=== PATIENT | female | born 1995 | race Caucasian/White ===

== ENCOUNTER → 2023-01-13 10:14 | Outpatient (BNVA) | payer MEDICAID, SELFPAY | PROVIDERS: Family Provider Registered Nurse; Referring Provider Family Medicine; Visit Provider Student in an Organized Health Care Education/Training Program | DX: M25.561 Pain in right knee (principal); S83.8X1A Sprain of other specified parts of right knee, initial encounter; X58.XXXA Exposure to other specified factors, initial encounter | CPT/HCPCS: 73560; 73565 ==

== ENCOUNTER → 2024-09-09 11:28 | Outpatient (BNVA) | payer OTHER, SELFPAY | PROVIDERS: Family Provider Registered Nurse; Visit Provider Nurse Practitioner Women's Health | DX: Z01.419 Encounter for gynecological examination (general) (routine) without abnormal findings (principal); E28.2 Polycystic ovarian syndrome; N92.6 Irregular menstruation, unspecified; N91.2 Amenorrhea, unspecified | CPT/HCPCS: 80053; 82306; 82670; 83001; 83002; 83036; 83520; 83525; 84146; 84402; 84403; 84443; 84702; 85025 ==

== ENCOUNTER → 2024-09-11 12:33 | Outpatient (BNVA) | payer OTHER, SELFPAY | PROVIDERS: Family Provider Registered Nurse; Visit Provider Nurse Practitioner Women's Health | DX: N92.6 Irregular menstruation, unspecified (principal); N83.292 Other ovarian cyst, left side | CPT/HCPCS: 76830 ==